=== PATIENT | female | born 1975 | race Hispanic/Latino ===

== ENCOUNTER 2024-11-03 08:44 | Day surgery (SDC) | payer OTHER ==
[2024-11-02 14:08] VITALS: BMI 28.3
[2024-11-03] MEDS ORDERED: Sevoflurane 250 ML INH ANEST BOTTLE ONE (08:52)
[2024-11-03 10:29] LABS: Hematocrit 41.1 % (34.9-44.5)
[2024-11-03] MEDS ORDERED: fentaNYL 50 mcg/mL 1 mL Vial ONE ×3 (10:56→14:18)
[2024-11-03] MEDS ORDERED: PROPOFOL 40 ML ONE (10:56)
[2024-11-03] MEDS ORDERED: Lidocaine 1% PF 5 ML VIAL ONE (10:56)
[2024-11-03] MEDS ORDERED: SUGAMMADEX SODIUM 200 MG/2 ML VIAL ONE (11:10)
[2024-11-03] MEDS ORDERED: Lidocaine 1% w/Epinephrine 1:200K 30 ML VIAL ONE (11:50)
[2024-11-03] MEDS ORDERED: PHENYLEPHRINE-NS 100 MCG/ML 10 ML SYRINGE ONE (12:12)
[2024-11-03] MEDS ORDERED: CEFAZOLIN 1 GM VIAL ONE (12:17)
[2024-11-03] MEDS ORDERED: Dexamethasone 4 mg/ml Vial ONE (12:25)
[2024-11-03] MEDS ORDERED: Ondansetron PF 4 MG/2 ML Vial ONE (12:25)
[2024-11-03] MEDS ORDERED: ePHEDrine Sulfate 50 MG/10 ML VIAL ONE (12:44)
== END 2024-11-03 16:25 | disposition home or self-care (01) ==
LOC: CSHSDC 08:44
PROVIDERS: ATTEND Specialist
PROC: 0JB40ZZ Excision of Right Neck Subcutaneous Tissue and Fascia, Open Approach (ICD-10-PCS; principal; 2024-11-03)
DX: R22.1 Localized swelling, mass and lump, neck (principal); K21.9 Gastro-esophageal reflux disease without esophagitis; Z90.89 Acquired absence of other organs; Z88.5 Allergy status to narcotic agent; Z88.8 Allergy status to other drugs, medicaments and biological substances; Z79.51 Long term (current) use of inhaled steroids; Z79.899 Other long term (current) drug therapy
CPT/HCPCS: 36415; 85014; 88304; 93005; 93010; A6258; J0690; J1100; J2405; J2704; J3010